=== PATIENT | male | born 1975 | race Caucasian/White ===

== ENCOUNTER 2019-11-12 22:03 | Emergency (ER) | payer MEDICAID ==
[2019-11-12] MEDS ORDERED: Ketorolac 30 MG/ML SDV IM ONE (22:43)
--- NOTE | 2019-11-12 22:49 | EDM.PDOC ---
ED HPI GENERAL MEDICAL PROBLEM - General Chief Complaint: Lower Extremity Injury/Pain Stated Complaint: L PAIN Time Seen by Provider: 11/12/19 22:30 Source of Information: Reports: Patient, Old Records History Limitations: Reports: No Limitations - History of Present Illness INITIAL COMMENTS - FREE TEXT/NARRATIVE: 44 yo male presents with bilateral anterior hip pain, L > R. States that on he helped get a car that was stuck in the snow out. After that he began to have this pain that has gradually worsened. It is painful now to ambulate due to this. He has not been to his provider for this. Is not missing work. Has an appt in the next 1.5 weeks to begin PT for sciatica. Is taking Flexeril and an NSAID so far without relief. 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 Denies: Joint Swelling Skin: Reports: No Symptoms Neurological: Reports: No Symptoms ED EXAM, GENERAL - Physical Exam Exam: See Below General Appearance: Alert, WD/WN, No Apparent Distress Back Exam: Normal Inspection Extremities: Normal Inspection, Normal Range of Motion, No Pedal Edema, Other ( tender bilaterally at attachment of hip flexors at the anterior superior iliac spine. L>R). No: Pedal Edema, Joint Swelling, Increased Warmth, Pallor, Redness Neurological: Alert, Oriented, CN II-XII Intact, Normal Cognition, No Motor/ Sensory Deficits Psychiatric: Normal Affect, Normal Mood Skin Exam: Warm, Dry, Intact, Normal Color, No Rash Course - Vital Signs Last Recorded V/S: Last Vital Signs Temp 36.3 C 11/12/19 22:35 Pulse 98 11/12/19 22:35 Resp 16 11/12/19 22:35 BP 117/82 11/12/19 22:35 Pulse Ox 95 11/12/19 22:35 - Orders/Labs/Meds Orders: Active Orders 24 hr Category Date Time Status Ketorolac [Toradol] Med 11/12/19 22:43 Once 30 mg IM ONETIME ONE Departure - Departure Time of Disposition: 23:00 Disposition: Home, Self-Care 01 Condition: Good Clinical Impression: Hip pain, bilateral Hip flexor tendinitis Qualifiers: Laterality: unspecified laterality Qualified Code(s): M76.899 - Other specified enthesopathies of unspecified lower limb, excluding foot - Discharge Information *PRESCRIPTION DRUG MONITORING PROGRAM REVIEWED*: Not Applicable *COPY OF PRESCRIPTION DRUG MONITORING REPORT IN PATIENT RADHA: Not Applicable Referrals: Zane Granado [employer] ADMINISTRATOR [Primary Care Provider] - Additional Instructions: Relative rest. Add acetaminophen up to 1000 mg every 6 hrs for pain relief. Apply moist heat to areas of pain several times daily. Massage areas with lotion to loosen muscles and promote healing. You may try continued baths with CBD and/or Epsom Salts. F/U with your provider later in the week for recheck and possible PT referral. Sepsis Event Note - Evaluation Sepsis Screening Result: No Definite Risk - Focused Exam Vital Signs: Vital Signs Temp Pulse Resp BP Pulse Ox 11/12/19 22:35 36.3 C 98 16 117/82 95 11/12/19 22:27 36.3 C 98 16 117/82 95 Date Exam was Performed: 11/12/19 Time Exam was Performed: 22:43 - My Orders Last 24 Hours: My Active Orders 11/12/19 22:43 Ketorolac [Toradol] 30 mg IM ONETIME ONE - Assessment/Plan Last 24 Hours: My Active Orders 11/12/19 22:43 Ketorolac [Toradol] 30 mg IM ONETIME ONE
== END 2019-11-12 22:59 | disposition home or self-care (01) ==
LOC: JP.ED 22:03
DX: M76.899 Other specified enthesopathies of unspecified lower limb, excluding foot (principal)
CPT/HCPCS: 96372; 99283; J1885

== ENCOUNTER 2020-06-13 18:22 | Inpatient (IN) | payer MEDICAID ==
[2020-06-13] MEDS ORDERED: Dexamethasone 4 MG/ML SDV IVPUSH ONE (18:50)
[2020-06-13] MEDS ORDERED: Acetaminophen/oxyCODONE 325-5 MG Tab PO PRN (19:04)
--- NOTE | 2020-06-13 19:12 | EDM.PDOC ---
ED HPI GENERAL MEDICAL PROBLEM - General Chief Complaint: Back Pain or Injury Stated Complaint: MEDICAL VIA [facility] Time Seen by Provider: 06/13/20 18:30 Source of Information: Reports: Patient, EMS History Limitations: Reports: No Limitations - History of Present Illness INITIAL COMMENTS - FREE TEXT/NARRATIVE: 45-year-old male with chronic back pain, underwent a decompression surgery at [facility] 2 days ago, discharged yesterday and is not doing well. He had to call the ambulance this afternoon because he cannot walk, cannot get out of bed or get off the toilet. He has significant burning pain in his lower back radiating into the buttocks bilaterally. No fevers or chills, no incontinence. He is on oxycodone 5 mg every 4 hours, along with gabapentin and Flexeril and it is not controlling his symptoms. He was given a dose of Versed in route for muscle spasm. He is fairly comfortable when lying completely still but any movement is very painful, he screamed with transferring him from the EMS gurney to the ER bed. Patient did not feel he was ready to be discharged from the hospital yesterday. Onset: Unknown/Unsure (Worse since being discharged from the hospital) Lower Back Pain Score (Numeric/FACES): 8 - Related Data Allergies Allergy/AdvReac Type Severity Reaction Status Date / Time No Known Allergies Allergy Verified 11/12/19 22:33 Home Meds: Home Meds Cyclobenzaprine [Flexeril] 10 mg PO TID 11/12/19 [History] Diclofenac Sodium [Voltaren] 75 mg PO BIDMEALS 11/12/19 [History] Gabapentin [Neurontin] 600 mg PO TID 06/13/20 [History] oxyCODONE HCl [Oxycodone HCl] 5 mg PO QID 06/13/20 [History] Past Medical History HEENT History: Reports: Impaired Vision Cardiovascular History: Reports: Heart Murmur Gastrointestinal History: Reports: GERD Musculoskeletal History: Reports: Back Pain, Chronic, RA Other Musculoskeletal History: bilateral sciatica, herniated discs Neurological History: Reports: Concussion Psychiatric History: Reports: Autism - Infectious Disease History Infectious Disease History: Reports: Chicken Pox - Past Surgical History GI Surgical History: Reports: Cholecystectomy Musculoskeletal Surgical History: Reports: Other (See Below) Other Musculoskeletal Surgeries/Procedures:: back surgery Social & Family History - Tobacco Use Smoking Status *Q: Current Every Day Smoker Years of Tobacco use: 28 Packs/Tins Daily: 0.5 - Caffeine Use Caffeine Use: Reports: Coffee, Soda, Tea - Recreational Drug Use Recreational Drug Use: Yes Drug Use in Last 12 Months: Yes Recreational Drug Type: Reports: Marijuana/Hashish Recreational Drug Use Frequency: Socially ED ROS GENERAL - Review of Systems Review Of Systems: See Below Constitutional: Denies: Fever, Chills Respiratory: Denies: Shortness of Breath Cardiovascular: Denies: Chest Pain GI/Abdominal: Denies: Nausea, Vomiting Musculoskeletal: Reports: Back Pain, Leg Pain (Bilaterally) Skin: Reports: No Symptoms Neurological: Reports: Other (Burning sensation into the buttocks and legs bilaterally) ED EXAM,LOWER BACK PAIN/INJURY - Physical Exam Exam: See Below Exam Limited By: No Limitations General Appearance: Alert, Mild Distress (Especially with movement) Throat/Mouth: Other (Numerous dental caries are present) Head: Atraumatic Respiratory/Chest: No Respiratory Distress, Lungs Clear Cardiovascular: Regular Rate, Rhythm GI/Abdominal: Soft, Non-Tender Back Exam: Paraspinal Tenderness Extremities: Other (Symmetric sensation to the feet, pulling sensation and increased pain with passive flexion of the hips but no radiculopathy) Neurological: Alert, Oriented x 3, Other (No sensory defects the lower extremities, motor weakness is difficult to assess because of the pain) Psychiatric: Anxious Skin Exam: Warm, Dry Course - Vital Signs Last Recorded V/S: Last Vital Signs Temp 98.6 F 06/13/20 21:14 Pulse 86 06/13/20 21:14 Resp 16 06/13/20 21:14 BP 131/70 06/13/20 21:14 Pulse Ox 93 L 06/13/20 21:47 - Orders/Labs/Meds Orders: Active Orders 24 hr Category Date Time Status Patient Status [ADT] Routine ADT 06/13/20 20:37 Active Bedrest Bedside Commode [RC] ASDIRECTED Care 06/13/20 20:44 Active Oxygen Therapy [RC] PRN Care 06/13/20 20:37 Active Pulse Oximetry [RC] CONTINUOUS Care 06/13/20 20:45 Active Up With Assistance [RC] ASDIRECTED Care 06/13/20 20:44 Active VTE/DVT Education [RC] Per Unit Routine Care 09/18/20 20:37 Active Vital Signs [RC] Q4H Care 06/13/20 20:37 Active PT Evaluation and Treatment [CONS] Routine Cons 06/13/20 20:44 Active Regular Diet [DIET] Diet 06/13/20 Breakfast Active Acetaminophen [TylenoL] Med 06/13/20 20:44 Active 650 mg PO Q4H PRN Docusate Sodium [Colace] Med 06/13/20 21:00 Active 100 mg PO BID Morphine Med 06/13/20 20:44 Active 4 mg IVPUSH Q2H PRN Ondansetron [Zofran ODT] Med 06/13/20 20:44 Active 4 mg PO Q6H PRN Promethazine [Phenergan] 12.5 mg Med 06/13/20 20:44 Active Sodium Chloride 0.9% [Normal Saline] 50 ml IV Q6H oxyCODONE Med 06/13/20 20:44 Active 10 mg PO Q4H PRN Resuscitation Status Routine Resus Stat 06/13/20 20:37 Ordered Medication Orders Acetaminophen (Tylenol) 650 mg PO Q4H PRN PRN Reason: Pain (Mild 1-3)/fever Docusate Sodium (Colace) 100 mg PO BID [facility] Last Admin: 06/13/20 21:55 Dose: 100 mg Documented by: LINDA Famotidine (Pepcid) 40 mg PO BID [facility] Last Admin: 06/13/20 21:56 Dose: 40 mg Documented by: LINDA Gabapentin (Neurontin) 600 mg PO TID [facility] Promethazine HCl 12.5 mg/ (Sodium Chloride) 50.5 mls @ 200 mls/hr IV Q6H PRN PRN Reason: Nausea/Vomiting Ketorolac Tromethamine (Toradol) 30 mg IVPUSH Q6H PRN PRN Reason: Pain Stop: 06/18/20 21:08 Morphine Sulfate (Morphine) 4 mg IVPUSH Q2H PRN PRN Reason: Pain (severe 7-10) Ondansetron HCl (Zofran Odt) 4 mg PO Q6H PRN PRN Reason: Nausea able to take PO Oxycodone HCl (Oxycodone) 10 mg PO Q4H PRN PRN Reason: Pain (moderate 4-6) Meds: Medications Generic Name Dose Route Start Last Admin Trade Name Freq PRN Reason Stop Dose Admin Acetaminophen 650 mg 06/13/20 20:44 Tylenol PO Q4H PRN Pain (Mild 1-3)/fever Docusate Sodium 100 mg 06/13/20 21:00 06/13/20 21:55 Colace PO 100 mg BID JOJO Administration Famotidine 40 mg 06/13/20 21:30 06/13/20 21:56 Pepcid PO 40 mg BID JOJO Administration Gabapentin 600 mg 06/14/20 09:00 Neurontin PO TID JOJO Promethazine HCl 12.5 mg/ 50.5 mls @ 200 mls/hr 06/13/20 20:44 Sodium Chloride IV Q6H PRN Nausea/Vomiting Ketorolac Tromethamine 30 mg 06/13/20 21:08 Toradol IVPUSH 06/18/20 21:08 Q6H PRN Pain Morphine Sulfate 4 mg 06/13/20 20:44 Morphine IVPUSH Q2H PRN Pain (severe 7-10) Ondansetron HCl 4 mg 06/13/20 20:44 Zofran Odt PO Q6H PRN Nausea able to take PO Oxycodone HCl 10 mg 06/13/20 20:44 Oxycodone PO Q4H PRN Pain (moderate 4-6) Discontinued Medications Generic Name Dose Route Start Last Admin Trade Name Freq PRN Reason Stop Dose Admin Dexamethasone 10 mg 06/13/20 18:50 06/13/20 19:16 Dexamethasone IVPUSH 06/13/20 18:51 10 mg ONETIME ONE Administration Ibuprofen 800 mg 06/13/20 20:44 Motrin PO Q6H PRN Pain (mild 1-3) Ketorolac Tromethamine 30 mg 06/13/20 19:50 06/13/20 19:58 Toradol IVPUSH 06/13/20 19:51 30 mg ONETIME ONE Administration Oxycodone/Acetaminophen 1 tab 06/13/20 19:04 06/13/20 19:13 Percocet 325-5 Mg PO 1 tab ONETIME PRN Administration Pain (moderate 4-6) - Re-Assessments/Exams Free Text/Narrative Re-Assessment/Exam: 06/13/20 19:11 Patient has not taken any oral pain medication for the last 4 hours so was given 2 doses of oxycodone. Discussed his case with neurosurgery in [place], they were reassuring is that it is very unlikely this is a serious surgical complication and most likely just intolerant of the postoperative pain. It was recommended he was given 10 mg of IV Decadron, and continued on Decadron through the weekend and if unable to tolerate the symptoms he can be admitted for pain control and then see Dr. Bishop, his surgeon, on Tuesday. Departure - Departure Time of Disposition: 21:20 Disposition: Admitted As Inpatient 67 Clinical Impression: Postoperative back pain - Discharge Information Sepsis Event Note (ED) - Evaluation Sepsis Screening Result: No Definite Risk - Focused Exam Vital Signs: Vital Signs Temp Pulse Resp BP Pulse Ox 06/13/20 20:15 78 126/63 06/13/20 19:24 78 122/70 06/13/20 18:50 82 128/75 06/13/20 18:25 99.3 F 83 16 132/72 99
[2020-06-13] MEDS ORDERED: Ketorolac 30 MG/ML SDV IVPUSH ONE (19:50)
[2020-06-13] MEDS ORDERED: Morphine 4 MG/ML Syringe IVPUSH PRN (20:44)
[2020-06-13] MEDS ORDERED: Ibuprofen 800 MG Tab PO PRN (20:44)
[2020-06-13] MEDS ORDERED: Promethazine 12.5 MG in Sodium Chloride 0.9% 50 ML IV PRN (20:44)
[2020-06-13] MEDS ORDERED: Acetaminophen 325 MG Tab PO PRN (20:44)
[2020-06-13] MEDS ORDERED: Ondansetron 4 MG Tab.DIS PO PRN (20:44)
[2020-06-13] MEDS ORDERED: oxyCODONE 5 MG Tab PO PRN (20:44)
[2020-06-13] MEDS ORDERED: Ketorolac 30 MG/ML SDV IVPUSH PRN (21:08)
--- NOTE | 2020-06-13 21:16 | PCM.HP.2 ---
H&P History of Present Illness - General Date of Service: 06/13/20 Admit Problem/Dx: Admission Diagnosis/Problem Admission Diagnosis/Problem Pain at surgical site Source of Information: Patient, Other ([facility] physician) History Limitations: Reports: No Limitations - History of Present Illness Initial Comments - Free Text/Narative: Patient is a 45yo male who is S/P low back fusion/laminectomy day 2. He has been having intractable pain to the point that he was unable to move off the commode at his home today and called 911. Patient was given versed in ambulance on way t o ER which was unhelpful in relieving pain. Patient was taking pain medication appropriately and was not having relief. He is having significant neuropathic pain in his legs and buttocks as well as pain in his back and difficulty moving. He denies other medical problems Onset of Symptoms: Reports: Gradual Duration of Symptoms: Reports: Day(s): (2) Location: Reports: Back, Radiates to (legs) Quality: Reports: Ache, Burning Improves with: Reports: Medication Worsens with: Reports: Movement Context: Reports: Other (post surgical) Associated Symptoms: Reports: No Other Symptoms Lower Back Pain Score (Numeric/FACES): 8 - Related Data Allergies/Adverse Reactions: Allergies Allergy/AdvReac Type Severity Reaction Status Date / Time No Known Allergies Allergy Verified 11/12/19 22:33 Home Medications: Home Meds Cyclobenzaprine [Flexeril] 10 mg PO TID 11/12/19 [History] Diclofenac Sodium [Voltaren] 75 mg PO BIDMEALS 11/12/19 [History] Gabapentin [Neurontin] 600 mg PO TID 06/13/20 [History] oxyCODONE HCl [Oxycodone HCl] 5 mg PO QID 06/13/20 [History] Past Medical History HEENT History: Reports: Impaired Vision Cardiovascular History: Reports: Heart Murmur Gastrointestinal History: Reports: GERD Musculoskeletal History: Reports: Back Pain, Chronic, RA Other Musculoskeletal History: bilateral sciatica, herniated discs Neurological History: Reports: Concussion Psychiatric History: Reports: Autism - Infectious Disease History Infectious Disease History: Reports: Chicken Pox - Past Surgical History GI Surgical History: Reports: Cholecystectomy Musculoskeletal Surgical History: Reports: Other (See Below) Other Musculoskeletal Surgeries/Procedures:: back surgery Social & Family History - Tobacco Use Smoking Status *Q: Current Every Day Smoker Years of Tobacco use: 28 Packs/Tins Daily: 0.5 - Caffeine Use Caffeine Use: Reports: Coffee, Soda, Tea - Recreational Drug Use Recreational Drug Use: Yes Drug Use in Last 12 Months: Yes Recreational Drug Type: Reports: Marijuana/Hashish Recreational Drug Use Frequency: Socially H&P Review of Systems - Review of Systems: Review Of Systems: See Below General: Reports: No Symptoms HEENT: Reports: No Symptoms Pulmonary: Reports: No Symptoms Cardiovascular: Reports: No Symptoms Gastrointestinal: Reports: No Symptoms Genitourinary: Reports: No Symptoms Musculoskeletal: Reports: Back Pain, Leg Pain Skin: Reports: No Symptoms Psychiatric: Reports: No Symptoms Neurological: Reports: Numbness (in legs and buttocks BL), Tingling Hematologic/Lymphatic: Reports: No Symptoms Immunologic: Reports: No Symptoms Exam - Exam Exam: See Below - Vital Signs Vital Signs: Last Vital Signs Temp 37.4 C 06/13/20 18:25 Pulse 78 06/13/20 20:15 Resp 16 06/13/20 18:25 BP 126/63 06/13/20 20:15 Pulse Ox 99 06/13/20 18:25 Weight: 107.9 kg - Exam General: Alert, Oriented, 4 HEENT: PERRLA, Hearing Intact, Mucosa Moist & [place], Nares Patent, Normal Nasal Septum, Posterior Pharynx Clear, Conjunctiva Clear, EOMI, EACs Clear, TMs Clear Neck: Supple, Trachea Midline, 2 Lungs: Clear to Auscultation, Normal Respiratory Effort Cardiovascular: Regular Rate, Regular Rhythm GI/Abdominal Exam: Normal Bowel Sounds, Soft, Non-Tender, No Organomegaly, No Distention, No Abnormal Bruit, No Mass, Pelvis Stable (Male) Exam: Deferred Rectal (Males) Exam: Deferred Back Exam: Normal Inspection, Full Range of Motion, NT Extremities: No Pedal Edema, Normal Capillary Refill, Leg Pain Skin: Warm, Dry, Intact, Other (post op incision on low back) Neurological: Cranial Nerves Intact, Reflexes Equal Bilateral Neuro Extensive - Mental Status: Alert, Oriented x3, Normal Mood/Affect, Normal Cognition Neuro Extensive - Motor, Sensory, Reflexes: CN II-XII Intact Psychiatric: Alert, Normal Affect, Normal Mood Sepsis Event Note - Evaluation Sepsis Screening Result: No Definite Risk - Focused Exam Vital Signs: Vital Signs Temp Pulse Resp BP Pulse Ox 06/13/20 20:15 78 126/63 06/13/20 19:24 78 122/70 06/13/20 18:50 82 128/75 06/13/20 18:25 37.4 C 83 16 132/72 99 - Problem List (1) Postoperative pain after spinal surgery SNOMED Code(s): 280017155 ICD Code: G89.18 - OTHER ACUTE POSTPROCEDURAL PAIN Status: Acute Current Visit: Yes Onset Date: ~06/12/20 Problem Details: Will give patient pain control overnight and have him evaluated by PT and hospitalist in AM. Will give patient oral and IV pain medication as needed, as well as NSAIDs, and gabapentin for inflammation and neuropathic pain. Patient will be given pepcid for GI prophylaxis with high dose NSAIDs and steroids that have been given in the ED. Patient will be on O2 monitoring due to pain medication. (2) Neuropathic pain of both legs SNOMED Code(s): 51029392, 498405931 ICD Code: G57.93 - UNSPECIFIED MONONEUROPATHY OF BILATERAL LOWER LIMBS Status: Acute Current Visit: Yes Onset Date: ~06/12/20 Problem Details: Will give patient pain control overnight and have him evaluated by PT and hospitalist in AM. Will give patient oral and IV pain medication as needed, as well as NSAIDs, and gabapentin for inflammation and neuropathic pain. Patient will be given pepcid for GI prophylaxis with high dose NSAIDs and steroids that have been given in the ED. Patient will be on O2 monitoring due to pain medication. (3) GERD (gastroesophageal reflux disease) SNOMED Code(s): 315214565 ICD Code: K21.9 - GASTRO-ESOPHAGEAL REFLUX DISEASE WITHOUT ESOPHAGITIS Status: Acute Current Visit: Yes Problem Details: WIll give patient pepcid for GI prophylaxis for NSAID/steroid anti inflammatory risk as well as PMH of GERD Qualifiers: Esophagitis presence: without esophagitis Qualified Code(s): K21.9 - Gastro-esophageal reflux disease without esophagitis Problem List Initiated/Reviewed/Updated: Yes Orders Last 24hrs: Active Orders 24 hr Category Date Time Status Patient Status Manage Transfer [TRANSFER] Routine ADT 06/13/20 20:56 Active Patient Status [ADT] Routine ADT 06/13/20 20:37 Active Bedrest Bedside Commode [RC] ASDIRECTED Care 06/13/20 20:44 Active Oxygen Therapy [RC] PRN Care 06/13/20 20:37 Active Pulse Oximetry [RC] CONTINUOUS Care 06/13/20 20:45 Active Up With Assistance [RC] ASDIRECTED Care 06/13/20 20:44 Active VTE/DVT Education [RC] Per Unit Routine Care 06/13/20 20:37 Active Vital Signs [RC] Q4H Care 06/13/20 20:37 Active PT Evaluation and Treatment [CONS] Routine Cons 06/13/20 20:44 Active Regular Diet [DIET] Diet 06/13/20 Breakfast Active Acetaminophen [TylenoL] Med 06/13/20 20:44 Active 650 mg PO Q4H PRN Docusate Sodium [Colace] Med 06/13/20 21:00 Active 100 mg PO BID Gabapentin [Neurontin] Med 06/14/20 09:00 Ordered 600 mg PO TID Ibuprofen [Motrin] Med 06/13/20 20:44 Active 800 mg PO Q6H PRN Ketorolac [Toradol] Med 06/13/20 21:08 Ordered 30 mg IVPUSH Q6H PRN Morphine Med 06/13/20 20:44 Active 4 mg IVPUSH Q2H PRN Ondansetron [Zofran ODT] Med 06/13/20 20:44 Active 4 mg PO Q6H PRN Promethazine [Phenergan] 12.5 mg Med 06/13/20 20:44 Active Sodium Chloride 0.9% [Normal Saline] 50 ml IV Q6H oxyCODONE Med 06/13/20 20:44 Active 10 mg PO Q4H PRN Resuscitation Status Routine Resus Stat 06/13/20 20:37 Ordered Medication Orders Acetaminophen (Tylenol) 650 mg PO Q4H PRN PRN Reason: Pain (Mild 1-3)/fever Docusate Sodium (Colace) 100 mg PO BID JOJO Gabapentin (Neurontin) 600 mg PO TID JOJO Promethazine HCl 12.5 mg/ (Sodium Chloride) 50.5 mls @ 200 mls/hr IV Q6H PRN PRN Reason: Nausea/Vomiting Ibuprofen (Motrin) 800 mg PO Q6H PRN PRN Reason: Pain (mild 1-3) Ketorolac Tromethamine (Toradol) 30 mg IVPUSH Q6H PRN PRN Reason: Pain Stop: 06/18/20 21:08 Morphine Sulfate (Morphine) 4 mg IVPUSH Q2H PRN PRN Reason: Pain (severe 7-10) Ondansetron HCl (Zofran Odt) 4 mg PO Q6H PRN PRN Reason: Nausea able to take PO Oxycodone HCl (Oxycodone) 10 mg PO Q4H PRN PRN Reason: Pain (moderate 4-6) - Mortality Measure Prognosis:: Good
[2020-06-13] MEDS: Docusate Sodium 100 MG Cap PO SCH (21:55)
[2020-06-13] MEDS: Famotidine 20 MG Tab PO SCH (21:56)
[2020-06-14] MEDS ORDERED: Gabapentin 300 MG Cap PO SCH (09:00)
[2020-06-14] MEDS: Docusate Sodium 100 MG Cap PO SCH (09:50)
[2020-06-14] MEDS: Famotidine 20 MG Tab PO SCH (09:50)
--- NOTE | 2020-06-14 12:44 | PCM.DCSUM1 ---
Discharge Summary - Hospital Course Brief History: Mr. Vu is a 45-year-old gentleman who was admitted through the emergency department with back pain and neuropathic pain into both lower extremities, following low back surgery performed 2 days earlier. - Discharge Data Discharge Date: 06/14/20 Discharge Disposition: Home, Self-Care 01 Condition: Fair - Referral to Home Health Primary Care Physician: Justin Bishop MD - Discharge Diagnosis/Problem(s) (1) Neuropathic pain of both legs SNOMED Code(s): 73826174, [id number] ICD Code: G57.93 - UNSPECIFIED MONONEUROPATHY OF BILATERAL LOWER LIMBS Status: Acute Current Visit: Yes Onset Date: ~06/12/20 Problem Details: Will give patient pain control overnight and have him evaluated by PT and hospitalist in AM. Will give patient oral and IV pain medication as needed, as well as NSAIDs, and gabapentin for inflammation and neuropathic pain. Patient will be given pepcid for GI prophylaxis with high dose NSAIDs and steroids that have been given in the ED. Patient will be on O2 monitoring due to pain medication. (2) Postoperative pain after spinal surgery SNOMED Code(s): 069049759 ICD Code: G89.18 - OTHER ACUTE POSTPROCEDURAL PAIN Status: Acute Current Visit: Yes Onset Date: ~06/12/20 Problem Details: Will give patient pain control overnight and have him evaluated by PT and hospitalist in AM. Will give patient oral and IV pain medication as needed, as well as NSAIDs, and gabapentin for inflammation and neuropathic pain. Patient will be given pepcid for GI prophylaxis with high dose NSAIDs and steroids that have been given in the ED. Patient will be on O2 monitoring due to pain medication. - Patient Summary/Data Consults: Consultations 06/13/20 20:44 PT Evaluation and Treatment [CONS] Routine Please Evaluate and Treat. PT Reason for Consult: intractible post-op back pain This query below is only for informational purposes and is not editable. Hospital Course: Patient is a 45yo male who is S/P low back fusion/laminectomy day 2. He has been having intractable pain to the point that he was unable to move off the commode at his home today and called 911. Patient was given versed in ambulance on way to ER which was unhelpful in relieving pain. Patient was taking pain medication appropriately and was not having relief. He is having significant neuropathic pain in his legs and buttocks as well as pain in his back and difficulty moving. He denies other medical problems. He was admitted and received IV Decadron as well as IV Toradol. By the following morning he was feeling significantly improved. He had been seen by physical therapy and instructed on transfers and ambulation. He was encouraged to stay 1 more night to assure that his symptoms were well managed and that he was able to transfer and ambulate on an ongoing basis. He requested that he be discharged today and felt that he would now do well at home. Activity will be as tolerated and he will resume his usual diet. He will keep follow-up appointments as previously scheduled. - Patient Instructions Diet: Usual Diet as Tolerated Activity: As Tolerated - Discharge Plan *PRESCRIPTION DRUG MONITORING PROGRAM REVIEWED*: Not Applicable *COPY OF PRESCRIPTION DRUG MONITORING REPORT IN PATIENT RADHA: Not Applicable Home Medications: Home Meds Cyclobenzaprine [Flexeril] 10 mg PO TID 11/12/19 [History] Diclofenac Sodium [Voltaren] 75 mg PO BIDMEALS 11/12/19 [History] Gabapentin [Neurontin] 600 mg PO TID 06/13/20 [History] oxyCODONE HCl [Oxycodone HCl] 5 mg PO QID 06/13/20 [History] Referrals: Justin Bishop MD [Primary Care Provider] - - Discharge Summary/Plan Comment DC Time >30 min.: No - Patient Data Vitals - Most Recent: Last Vital Signs Temp 95.1 F L 06/14/20 11:12 Pulse 87 06/14/20 11:12 Resp 18 06/14/20 07:43 BP 105/90 06/14/20 11:12 Pulse Ox 96 06/14/20 11:12 Weight - Most Recent: 237 lb 14.06 oz I&O - Last 24 hours: Intake & Output 06/13/20 06/14/20 06/14/20 22:59 06:59 14:59 Intake Total 106 617 [id number] Balance [phone] Med Orders - Current: Current Medications Acetaminophen (Tylenol) 650 mg PO Q4H PRN PRN Reason: Pain (Mild 1-3)/fever Docusate Sodium (Colace) 100 mg PO BID [facility] Last Admin: 06/14/20 09:50 Dose: 100 mg Documented by: Famotidine (Pepcid) 40 mg PO BID [facility] Last Admin: 06/14/20 09:50 Dose: 40 mg Documented by: Gabapentin (Neurontin) 600 mg PO TID [facility] Last Admin: 06/14/20 09:50 Dose: 600 mg Documented by: Promethazine HCl 12.5 mg/ (Sodium Chloride) 50.5 mls @ 200 mls/hr IV Q6H PRN PRN Reason: Nausea/Vomiting Ketorolac Tromethamine (Toradol) 30 mg IVPUSH Q6H PRN PRN Reason: Pain Stop: 06/18/20 21:08 Last Admin: 06/14/20 07:47 Dose: 30 mg Documented by: Morphine Sulfate (Morphine) 4 mg IVPUSH Q2H PRN PRN Reason: Pain (severe 7-10) Ondansetron HCl (Zofran Odt) 4 mg PO Q6H PRN PRN Reason: Nausea able to take PO Oxycodone HCl (Oxycodone) 10 mg PO Q4H PRN PRN Reason: Pain (moderate 4-6) Discontinued Medications Dexamethasone (Dexamethasone) 10 mg IVPUSH ONETIME ONE Stop: 06/13/20 18:51 Last Admin: 06/13/20 19:16 Dose: 10 mg Documented by: Ibuprofen (Motrin) 800 mg PO Q6H PRN PRN Reason: Pain (mild 1-3) Ketorolac Tromethamine (Toradol) 30 mg IVPUSH ONETIME ONE Stop: 06/13/20 19:51 Last Admin: 06/13/20 19:58 Dose: 30 mg Documented by: Oxycodone/Acetaminophen (Percocet 325-5 Mg) 1 tab PO ONETIME PRN PRN Reason: Pain (moderate 4-6) Last Admin: 06/13/20 19:13 Dose: 1 tab Documented by: - Exam General: Reports: Alert, Oriented Lungs: Reports: Clear to Auscultation, Normal Respiratory Effort Cardiovascular: Reports: Regular Rate, Regular Rhythm, No Murmurs GI/Abdominal Exam: Soft, Non-Tender, No Organomegaly, No Distention Neurological: Reports: Strength Equal Bilateral, Sensation Intact
== END 2020-06-14 13:15 | disposition home or self-care (01) | DRG 948 ==
LOC: JP.ED 18:22 → JP.MS 20:56
PROVIDERS: ADMIT Family Medicine; ATTEND Hospitalist
DX: G89.18 Other acute postprocedural pain (principal); G57.93 Unspecified mononeuropathy of bilateral lower limbs; K21.9 Gastro-esophageal reflux disease without esophagitis; Z90.49 Acquired absence of other specified parts of digestive tract; F17.200 Nicotine dependence, unspecified, uncomplicated
CPT/HCPCS: 94762; 96374; 96375; 97162-GP; 97530-GP; 99284-25; A9270-GY; J1100; J1885

== ENCOUNTER 2024-07-19 18:21 | Emergency (ER) | payer MEDICAID ==
[2024-07-19 19:02] LABS: BASOPHILS ABSOLUTE AUTO 0.11 K/uL (0.00-0.10); BASOPHILS PERCENT AUTO 1.3 % (0.1-1.3); EOSINOPHILS PERCENT AUTO 3.5 % (0.0-5.4); HEMATOCRIT 43.2 % (38.4-49.7); HEMOGLOBIN 14.9 g/dL (12.9-16.9); IMMATURE GRAN PERCENT AUTO 0.2 % (0.0-0.7); LYMPHOCYTES ABSOLUTE AUTO 2.34 K/uL (0.8-3.3); LYMPHOCYTES PERCENT AUTO 27.6 % (11.4-47.7); MEAN CORPUSCULAR HEMOGLOBIN 30.2 pg (31.6-35.5); MEAN CORPUSCULAR HGB CONC 34.5 g/dL (31.6-35.5); MEAN CORPUSCULAR VOLUME 87.6 fL (81.4-99.0); MONOCYTES ABSOLUTE AUTO 0.54 K/uL (0.20-0.90); MONOCYTES PERCENT AUTO 6.4 % (3.3-12.6); NEUTROPHILS ABSOLUTE AUTO 5.16 K/uL (1.0-7.6); PLATELET COUNT,PLT 233 K/uL (130-375); RED BLOOD CELL COUNT 4.93 M/uL (4.14-5.76); WHITE BLOOD CELL COUNT,WBC 8.5 K/uL (3.2-11.0)
[2024-07-19 19:03] LABS: IMMATURE GRAN ABSOLUTE AUTO 0.02 K/uL (0.00-0.23)
[2024-07-19] MEDS: Sodium Chloride 0.9% 1,000 ML IV SCH ×2 (19:08→21:58)
[2024-07-19] MEDS: HYDROmorphone 0.5 MG/0.5 ML Syringe IVPUSH ONE (19:09)
[2024-07-19 19:23] LABS: A/G RATIO 1.2 (1.2-2.2); ALANINE AMINOTRANSFERASE,ALT 19 U/L (12-78); ALBUMIN 3.8 g/dL (3.4-5.0); ALKALINE PHOSPHATASE 65 U/L (46-116); ANION GAP 6.7 mmol/L (5.0-14.0); ASPARTATE AMNIOTRANSFERASE,AST 13 U/L (15-37); BILIRUBIN TOTAL 0.3 mg/dL (0.2-1.0); BLOOD UREA NITROGEN,BUN 9 mg/dL (7-18); CALCIUM 9.5 mg/dL (8.5-10.1); CARBON DIOXIDE,CO2 30 mmol/L (21-32); CHLORIDE,CL 103 mmol/L (100-108); CREATININE 0.9 mg/dL (0.8-1.3); EST CRCL DRUG DOSING (CG) 100.38 mL/min; ESTIMATED GFR 105 mL/min (>60); GLUCOSE RANDOM 100 mg/dL (74-106); POTASSIUM,K 3.8 mmol/L (3.6-5.2); PROTEIN TOTAL,TP 7.1 g/dL (6.4-8.2); SODIUM,NA 140 mmol/L (140-148)
[2024-07-19 19:35] LABS: APPEARANCE,URINE CLEAR (CLEAR); BILIRUBIN,URINE NEGATIVE (NEGATIVE); COLOR,URINE YELLOW (YELLOW); GLUCOSE,URINE NEGATIVE (NEGATIVE); KETONES,URINE NEGATIVE (NEGATIVE); LEUKOCYTE ESTERASE,URINE NEGATIVE (NEGATIVE); NITRITE,URINE NEGATIVE (NEGATIVE); OCCULT BLOOD,URINE NEGATIVE (NEGATIVE); PROTEIN,URINE NEGATIVE (NEGATIVE); UROBILINOGEN,URINE 0.2 EU/dL (0.2-1.0)
[2024-07-19 19:41] LABS: AMORPHOUS SEDIMENT,URINE NOT SEEN; BACTERIA,URINE NOT SEEN; EPITHELIAL CELLS,URINE NOT SEEN; MUCUS,URINE NOT SEEN; RBC,URINE 0-5 (0-5); WBC,URINE 0-5 (0-5)
[2024-07-19] MEDS: Sodium Chloride 0.9% 60 ML IV SCH (20:37)
[2024-07-19] MEDS: Iopamidol 612 MG/ML 100 ML Bottle IV SCH (20:38)
[2024-07-19] MEDS: Ketorolac 30 MG/ML SDV IVPUSH ONE (22:12)
== END 2024-07-19 22:22 | disposition home or self-care (01) ==
LOC: JP.ED 18:21
DX: R10.31 Right lower quadrant pain (principal); M54.9 Dorsalgia, unspecified; F17.210 Nicotine dependence, cigarettes, uncomplicated; Z90.49 Acquired absence of other specified parts of digestive tract; Z79.2 Long term (current) use of antibiotics; Z79.1 Long term (current) use of non-steroidal anti-inflammatories (NSAID); Z79.899 Other long term (current) drug therapy; Z88.6 Allergy status to analgesic agent
CPT/HCPCS: 36415; 74177; 80053; 81001; 85025; 86140; 96361; 96374; 96375; 99284; 99284-25; J1171; J1885; J3490; J7030; Q9967

== ENCOUNTER 2024-08-10 13:45 | Emergency (ER) | payer MEDICAID ==
[2024-08-10] MEDS ORDERED: Sodium Chloride 0.9% 10 ML Syringe FLUSH PRN (13:53)
[2024-08-10 14:14] LABS: BASOPHILS ABSOLUTE AUTO 0.12 K/uL (0.00-0.10); BASOPHILS PERCENT AUTO 0.6 % (0.1-1.3); EOSINOPHILS ABSOLUTE AUTO 0.24 K/uL (0.00-0.40); EOSINOPHILS PERCENT AUTO 1.2 % (0.0-5.4); HEMATOCRIT 43.8 % (38.4-49.7); HEMOGLOBIN 15.5 g/dL (12.9-16.9); IMMATURE GRAN ABSOLUTE AUTO 0.11 K/uL (0.00-0.23); IMMATURE GRAN PERCENT AUTO 0.5 % (0.0-0.7); LYMPHOCYTES ABSOLUTE AUTO 2.35 K/uL (0.8-3.3); LYMPHOCYTES PERCENT AUTO 11.6 % (11.4-47.7); MEAN CORPUSCULAR HEMOGLOBIN 30.8 pg (31.6-35.5); MEAN CORPUSCULAR HGB CONC 35.4 g/dL (31.6-35.5); MEAN CORPUSCULAR VOLUME 87.1 fL (81.4-99.0); MONOCYTES ABSOLUTE AUTO 1.01 K/uL (0.20-0.90); NEUTROPHILS ABSOLUTE AUTO 16.48 K/uL (1.0-7.6); NEUTROPHILS PERCENT AUTO 81.1 % (40.0-78.1); PLATELET COUNT,PLT 243 K/uL (130-375); RED BLOOD CELL COUNT 5.03 M/uL (4.14-5.76); WHITE BLOOD CELL COUNT,WBC 20.3 K/uL (3.2-11.0)
[2024-08-10 14:33] LABS: PROTHROMBIN TIME 10.6 sec (9.2-10.6); PTT,PARTIAL THROMBOPLSTIN TIME 26.8 sec (21.8-27.3)
[2024-08-10 14:37] LABS: A/G RATIO 1.2 (1.2-2.2); ALANINE AMINOTRANSFERASE,ALT 25 U/L (12-78); ALKALINE PHOSPHATASE 64 U/L (46-116); ANION GAP 8.3 mmol/L (5.0-14.0); ASPARTATE AMNIOTRANSFERASE,AST 15 U/L (15-37); BILIRUBIN TOTAL 0.4 mg/dL (0.2-1.0); BLOOD UREA NITROGEN,BUN 5 mg/dL (7-18); CALCIUM 9.6 mg/dL (8.5-10.1); CARBON DIOXIDE,CO2 31 mmol/L (21-32); CHLORIDE,CL 102 mmol/L (100-108); ESTIMATED GFR 93 mL/min (>60); GLUCOSE RANDOM 100 mg/dL (74-106); POTASSIUM,K 3.8 mmol/L (3.6-5.2); PROTEIN TOTAL,TP 7.3 g/dL (6.4-8.2); SODIUM,NA 141 mmol/L (140-148); TROPONIN I HIGH SENSITIVITY 4.3 pg/mL (<=60.3)
[2024-08-10 15:03] LABS: AMPHETAMINES SCREEN, URINE NEGATIVE (NEGATIVE); BARBITURATE SCREEN,URINE NEGATIVE (NEGATIVE); BENZODIAZEPINES SCREEN,URINE NEGATIVE (NEGATIVE); METHADONE SCREEN, URINE NEGATIVE (NEGATIVE); METHAMPHETAMINES SCREEN, URINE NEGATIVE (NEGATIVE); OXYCODONE SCREEN,URINE NEGATIVE (NEGATIVE); PROPOXYPHENE SCREEN,URINE NEGATIVE (NEGATIVE); THC SCREEN,URINE 50 NG/ML NEGATIVE (NEGATIVE)
[2024-08-10 15:07] LABS: APPEARANCE,URINE CLEAR (CLEAR); BILIRUBIN,URINE NEGATIVE (NEGATIVE); COLOR,URINE YELLOW (YELLOW); GLUCOSE,URINE NEGATIVE (NEGATIVE); KETONES,URINE NEGATIVE (NEGATIVE); LEUKOCYTE ESTERASE,URINE NEGATIVE (NEGATIVE); NITRITE,URINE NEGATIVE (NEGATIVE); OCCULT BLOOD,URINE NEGATIVE (NEGATIVE); PROTEIN,URINE NEGATIVE (NEGATIVE); UROBILINOGEN,URINE 0.2 EU/dL (0.2-1.0)
[2024-08-10 15:14] LABS: RBC,URINE NOT SEEN (0-5); WBC,URINE NOT SEEN (0-5)
[2024-08-10 15:15] LABS: AMORPHOUS SEDIMENT,URINE NOT SEEN; BACTERIA,URINE RARE; EPITHELIAL CELLS,URINE RARE; MUCUS,URINE RARE
[2024-08-10] MEDS: Iopamidol 755 Mg/ML 100 ML Bottle IV ONE (15:25)
[2024-08-10] MEDS: Sodium Chloride 0.9% 100 ML IV SCH (15:25)
[2024-08-10] MEDS: Aspirin 81 MG Tab.Chew PO ONE (17:42)
== END 2024-08-10 20:29 ==
LOC: JP.ED 13:51
DX: R47.81 Slurred speech (principal); R26.89 Other abnormalities of gait and mobility; Z90.49 Acquired absence of other specified parts of digestive tract; Z79.899 Other long term (current) drug therapy; Z79.1 Long term (current) use of non-steroidal anti-inflammatories (NSAID); Z79.2 Long term (current) use of antibiotics; Z88.6 Allergy status to analgesic agent
CPT/HCPCS: 36415; 70450; 70450-26; 70496; 70496-26; 70498; 70498-26; 71046; 71046-26; 80053; 80305-QW; 80307; 81001; 82947; 84484; 85025; 85610; 85730; 93005; 93010; 99285; A9270-GY; J3490; Q9967

== ENCOUNTER 2025-09-05 22:40 | Emergency (ER) | payer MEDICAID, MEDICARE ==
[2025-09-06 00:24] LABS: BASOPHILS ABSOLUTE AUTO 0.14 K/uL (0.00-0.10); BASOPHILS PERCENT AUTO 1.5 % (0.1-1.3); EOSINOPHILS ABSOLUTE AUTO 0.40 K/uL (0.00-0.40); EOSINOPHILS PERCENT AUTO 4.2 % (0.0-5.4); IMMATURE GRAN PERCENT AUTO 0.2 % (0.0-0.7); LYMPHOCYTES ABSOLUTE AUTO 2.75 K/uL (0.8-3.3); LYMPHOCYTES PERCENT AUTO 28.6 % (11.4-47.7); MONOCYTES ABSOLUTE AUTO 0.60 K/uL (0.20-0.90); MONOCYTES PERCENT AUTO 6.2 % (3.3-12.6); NEUTROPHILS ABSOLUTE AUTO 5.72 K/uL (1.0-7.6); NEUTROPHILS PERCENT AUTO 59.3 % (40.0-78.1); PLATELET COUNT,PLT 261 K/uL (130-375); RED BLOOD CELL COUNT 4.92 M/uL (4.14-5.76); WHITE BLOOD CELL COUNT,WBC 9.6 K/uL (3.2-11.0)
[2025-09-06 00:35] LABS: A/G RATIO 1.2 (1.2-2.2); ALANINE AMINOTRANSFERASE,ALT 26 U/L (12-78); ASPARTATE AMNIOTRANSFERASE,AST 15 U/L (15-37); BILIRUBIN TOTAL 0.4 mg/dL (0.2-1.0); BLOOD UREA NITROGEN,BUN 12 mg/dL (7-18); CARBON DIOXIDE,CO2 32 mmol/L (21-32); CHLORIDE,CL 102 mmol/L (100-108); CREATININE 0.7 mg/dL (0.8-1.3); EST CRCL DRUG DOSING (CG) 119.35 mL/min; ESTIMATED GFR 113 mL/min (>60); GLUCOSE RANDOM 94 mg/dL (74-106); IMMATURE GRAN ABSOLUTE AUTO 0.02 K/uL (0.00-0.23); POTASSIUM,K 3.7 mmol/L (3.6-5.2); PROTEIN TOTAL,TP 7.4 g/dL (6.4-8.2); SODIUM,NA 140 mmol/L (140-148)
[2025-09-06 00:38] LABS: LACTIC ACID 0.7 mmol/L (0.4-2.0)
[2025-09-06] MEDS: Lidocaine 2% Jelly 10 ML Urojet MUCMEM ONE (00:38)
== END 2025-09-06 01:01 | disposition home or self-care (01) ==
LOC: JP.ED 22:40
DX: K60.2 Anal fissure, unspecified (principal); K59.00 Constipation, unspecified; K21.9 Gastro-esophageal reflux disease without esophagitis; F17.210 Nicotine dependence, cigarettes, uncomplicated; Z90.49 Acquired absence of other specified parts of digestive tract; Z88.6 Allergy status to analgesic agent; Z79.899 Other long term (current) drug therapy
CPT/HCPCS: 36415; 80053; 83605; 83690; 85025; 86140; 99283; 99284